=== PATIENT | female | born 2000 | race Caucasian/White ===

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

== ENCOUNTER 2022-09-03 12:34 | Emergency (ER) | payer OTHER ==
[~2022-09-03] VITALS: Ht 162.6 cm; Wt 77.3 kg
[2022-09-03 12:47] VITALS: BP 123/98
[2022-09-03] MEDS ORDERED: IBUP-45 PO (12:48)
[2022-09-03] MEDS ORDERED: HYDROGEN PEROXIDE 118 ML SOLUTION TP ONE (13:00)
[2022-09-03] MEDS ORDERED: PERTUSS(ACELL),DIPH,TET VAC/PF 0.5 ML SYRINGE IM. ONE (13:00)
[2022-09-03] MEDS ORDERED: BACITRACIN 0.9 GM PACKET OINTMENT TP ONE (13:00)
[2022-09-03] MEDS ORDERED: BACI28OI9 TP (13:01)
== END 2022-09-03 13:36 | disposition home or self-care (01) ==
LOC: EMS 12:49
DX: S00.81XA Abrasion of other part of head, initial encounter (principal); S10.91XA Abrasion of unspecified part of neck, initial encounter; S60.412A Abrasion of right middle finger, initial encounter; S50.812A Abrasion of left forearm, initial encounter; S30.810A Abrasion of lower back and pelvis, initial encounter; Z88.8 Allergy status to other drugs, medicaments and biological substances; Y04.8XXA Assault by other bodily force, initial encounter; Y93.89 Activity, other specified; Y92.89 Other specified places as the place of occurrence of the external cause; Y99.8 Other external cause status
CPT/HCPCS: 90471; 90715; 99283